=== PATIENT | female | born 1975 | race Caucasian/White ===

== ENCOUNTER 2023-08-17 18:20 | Emergency (ER) | payer MEDICAID ==
[2023-08-17 18:34] VITALS: BP 128/92; O2SAT 100
--- NOTE | 2023-08-17 19:19 | XRAY Report ---
PROCEDURE: Foot 3+V RT INDICATIONS: Trauma TECHNIQUE: 3 views of the foot were acquired. COMPARISON: None. FINDINGS: Bones: No fractures or dislocations. No suspicious bony lesions. Bipartite medial sesamoid. Soft tissues: No suspicious soft tissue calcifications or masses. IMPRESSION: No acute bony abnormality. Reviewed by: Jane Jj MD on 08/17/2023 7:18 PM PST Approved by: Jane Jj MD on 08/17/2023 7:18 PM PST Station ID: [id number]
--- NOTE | 2023-08-17 19:57 | ED Physician Documentation ---
PD HPI LOWER EXT INJURY - Stated complaint Stated Complaint: RT FOOT INJ - Chief complaint Chief Complaint: Trauma Ext - History obtained from History obtained from: Patient - Additional information Additional information: 47-year-old female presents for evaluation of right foot pain. Patient states that she has had intermittent pains in her right foot since last fall that seems to wax and wane. She has been treating it conservatively at home, but this evening she stepped incorrectly on her right foot, and reported feeling a popping sensation. Since then her pain is intensified and she is now walking with a limp. She is concerned that she may have either a fracture or a problem with her ligaments. Review of Systems Constitutional: denies: Fever, Chills GI: denies: Abdominal Pain, Nausea, Vomiting Musculoskeletal: reports: Extremity pain. denies: Neck pain, Back pain, Joint pain, Extremity swelling PD PAST MEDICAL HISTORY - Past Medical History Past Medical History: Yes Cardiovascular: None Respiratory: None Neuro: None Endocrine/Autoimmune: None GI: None COLORING ROOM MAN: None : None HEENT: None Psych: ADD/ADHD Musculoskeletal: Chronic back pain Derm: None - Past Surgical History Past Surgical History: Yes /COLORING ROOM MAN: Other - Present Medications Home Medications: Ambulatory Orders Medication Instructions Recorded Confirmed Dextroamphetamine/Amphetamine 20 mg PO TID 08/17/23 08/17/23 [Adderall 20 mg Tablet] HYDROcod/ACETAM 5/325 [[place] 5/325] 1 - 2 tablet PO Q6H PRN 08/17/23 08/17/23 - Allergies Allergies/Adverse Reactions: Allergies Allergy/AdvReac Type Severity Reaction Status Date / Time No Known Drug Allergies Allergy Verified 08/17/23 18:23 - Social History Does the pt smoke?: No Smoking Status: Never smoker Does the pt drink ETOH?: Yes Substance Use and Type: Marijuana, CBD oil / Products - Immunizations Immunizations are current?: Yes PD ED PE NORMAL - Vitals Vital signs reviewed: Yes - General General: Alert and oriented X 3, No acute distress, Well developed/nourished - Cardiac Cardiac: RRR - Respiratory Respiratory: No respiratory distress - Derm Derm: Normal color, Warm and dry, No rash - Extremities Extremities: No deformity, Other (tenderness under lateral R foot. No plantar fascia pain. 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 No obvious deformity on exam, neurovascularly intact. X-ray imaging is reviewed, no acute fracture or other misalignment identified. Patient has no pain in her plantar fascia region, and has had pain intermittently in this region for several months. Patient was informed of x-ray imaging findings, counseled conservative treatment with Tylenol, ibuprofen, ice, elevation and resting if possible. Placed in postop shoe for comfort. Patient family member questioned if an MRI could be ordered from the ER, I advised that this would have to be done either through primary care doctor or podiatry if felt appropriate. No indication for MRI through the emergency department. Recommended close PCP follow-up to see if any additional imaging is necessary. Departure - Departure Disposition: 01 Home, Self Care Clinical Impression: Injury of foot Qualifiers: Encounter type: initial encounter Laterality: right Qualified Code(s): S99.921A - Unspecified injury of right foot, initial encounter Instructions: ED Sprain Foot Comments: YOUR X RAY WAS NORMAL. TAKE TYLENOL AND MOTRIN NEEDED FOR PAIN. FOLLOW UP WITH EITHER YOUR PRIMARY CARE PHYSICIAN OR A PERINATOLOGY PHYSICIAN. Forms: PCP List Discharge Date/Time: 08/17/23 20:07
== END 2023-08-17 20:07 | disposition home or self-care (01) ==
LOC: ED 18:20
DX: S99.921A Unspecified injury of right foot, initial encounter (principal); X50.1XXA Overexertion from prolonged static or awkward postures, initial encounter; Z79.899 Other long term (current) drug therapy
CPT/HCPCS: 99283